=== PATIENT | female | born 1930 | race Caucasian/White ===

== ENCOUNTER 2018-01-01 13:17 | Outpatient (RCR) | payer MEDICARE | END 2018-01-22 | disposition home or self-care (01) | LOC: WCC 13:17 | DX: L97.813 Non-pressure chronic ulcer of other part of right lower leg with necrosis of muscle (principal); L97.913 Non-pressure chronic ulcer of unspecified part of right lower leg with necrosis of muscle; R60.0 Localized edema; Z88.0 Allergy status to penicillin; E78.00 Pure hypercholesterolemia, unspecified; I51.9 Heart disease, unspecified; E05.90 Thyrotoxicosis, unspecified without thyrotoxic crisis or storm; F32.9 Major depressive disorder, single episode, unspecified; K21.9 Gastro-esophageal reflux disease without esophagitis; Z79.82 Long term (current) use of aspirin | CPT/HCPCS: 11043; 15271; Q4133 ==

== ENCOUNTER 2018-01-29 13:10 | Outpatient (RCR) | payer MEDICARE | END 2018-02-21 | disposition home or self-care (01) | LOC: WCC 13:10 | DX: L97.813 Non-pressure chronic ulcer of other part of right lower leg with necrosis of muscle (principal); L97.913 Non-pressure chronic ulcer of unspecified part of right lower leg with necrosis of muscle; R60.0 Localized edema; Z88.0 Allergy status to penicillin; L98.491 Non-pressure chronic ulcer of skin of other sites limited to breakdown of skin; I51.9 Heart disease, unspecified; E78.00 Pure hypercholesterolemia, unspecified; E05.90 Thyrotoxicosis, unspecified without thyrotoxic crisis or storm; F32.9 Major depressive disorder, single episode, unspecified; K21.9 Gastro-esophageal reflux disease without esophagitis; Z79.82 Long term (current) use of aspirin | CPT/HCPCS: 11042; 11043; G0463 ==

== ENCOUNTER 2018-02-26 13:30 | Outpatient (RCR) | payer MEDICARE | END 2018-03-24 | disposition home or self-care (01) | LOC: WCC 13:30 | DX: L97.813 Non-pressure chronic ulcer of other part of right lower leg with necrosis of muscle (principal); L97.913 Non-pressure chronic ulcer of unspecified part of right lower leg with necrosis of muscle; R60.0 Localized edema; L98.491 Non-pressure chronic ulcer of skin of other sites limited to breakdown of skin; L97.512 Non-pressure chronic ulcer of other part of right foot with fat layer exposed; Z88.0 Allergy status to penicillin; I51.9 Heart disease, unspecified; E78.00 Pure hypercholesterolemia, unspecified; F32.9 Major depressive disorder, single episode, unspecified; K21.9 Gastro-esophageal reflux disease without esophagitis | CPT/HCPCS: 11043; 29580 ==

== ENCOUNTER 2018-03-26 13:30 | Outpatient (RCR) | payer MEDICARE ==
[~2018-03-26] VITALS: Ht 162.6 cm; Wt 68.0 kg
== END 2018-04-24 | disposition home or self-care (01) ==
LOC: WCC 13:30
DX: L98.499 Non-pressure chronic ulcer of skin of other sites with unspecified severity (principal); L97.822 Non-pressure chronic ulcer of other part of left lower leg with fat layer exposed; R60.0 Localized edema; Z88.0 Allergy status to penicillin; Z79.82 Long term (current) use of aspirin; E78.00 Pure hypercholesterolemia, unspecified; I50.9 Heart failure, unspecified; F32.9 Major depressive disorder, single episode, unspecified; K21.9 Gastro-esophageal reflux disease without esophagitis
CPT/HCPCS: 11042; 11043; 29580

== ENCOUNTER 2018-05-28 14:09 | Outpatient (RCR) | payer MEDICARE | END 2018-06-22 | disposition home or self-care (01) | LOC: WCC 14:09 | DX: L97.923 Non-pressure chronic ulcer of unspecified part of left lower leg with necrosis of muscle (principal); S51.801S Unspecified open wound of right forearm, sequela; R60.0 Localized edema; I73.9 Peripheral vascular disease, unspecified; E78.00 Pure hypercholesterolemia, unspecified; I51.9 Heart disease, unspecified; F32.9 Major depressive disorder, single episode, unspecified; K21.9 Gastro-esophageal reflux disease without esophagitis; F03.90 Unspecified dementia, unspecified severity, without behavioral disturbance, psychotic disturbance, mood disturbance, and anxiety; Z88.0 Allergy status to penicillin; X58.XXXS Exposure to other specified factors, sequela | CPT/HCPCS: 11043; 11046; 29580 ==

== ENCOUNTER 2018-06-25 13:13 | Outpatient (RCR) | payer MEDICARE | END 2018-07-22 | disposition home or self-care (01) | LOC: WCC 13:13 | DX: L97.923 Non-pressure chronic ulcer of unspecified part of left lower leg with necrosis of muscle (principal); R60.0 Localized edema; I73.9 Peripheral vascular disease, unspecified; S51.801S Unspecified open wound of right forearm, sequela; L97.823 Non-pressure chronic ulcer of other part of left lower leg with necrosis of muscle; Z88.0 Allergy status to penicillin; E78.00 Pure hypercholesterolemia, unspecified; F03.90 Unspecified dementia, unspecified severity, without behavioral disturbance, psychotic disturbance, mood disturbance, and anxiety; K21.9 Gastro-esophageal reflux disease without esophagitis; F32.9 Major depressive disorder, single episode, unspecified; E05.90 Thyrotoxicosis, unspecified without thyrotoxic crisis or storm; I11.9 Hypertensive heart disease without heart failure; I25.10 Atherosclerotic heart disease of native coronary artery without angina pectoris | CPT/HCPCS: 11043 ==

== ENCOUNTER 2018-08-20 13:44 | Outpatient (RCR) | payer MEDICARE | END 2018-08-22 | disposition home or self-care (01) | LOC: WCC 13:44 | DX: L97.813 Non-pressure chronic ulcer of other part of right lower leg with necrosis of muscle (principal); R60.9 Edema, unspecified; Z91.19 Patient's noncompliance with other medical treatment and regimen; F41.9 Anxiety disorder, unspecified; J44.9 Chronic obstructive pulmonary disease, unspecified; K21.9 Gastro-esophageal reflux disease without esophagitis; F03.90 Unspecified dementia, unspecified severity, without behavioral disturbance, psychotic disturbance, mood disturbance, and anxiety; I12.9 Hypertensive chronic kidney disease with stage 1 through stage 4 chronic kidney disease, or unspecified chronic kidney disease; N18.9 Chronic kidney disease, unspecified; E05.90 Thyrotoxicosis, unspecified without thyrotoxic crisis or storm; E78.00 Pure hypercholesterolemia, unspecified; Z79.899 Other long term (current) drug therapy; Z79.01 Long term (current) use of anticoagulants; Z79.82 Long term (current) use of aspirin; Z88.0 Allergy status to penicillin | CPT/HCPCS: 11043 ==

== ENCOUNTER 2018-10-01 13:13 | Outpatient (RCR) | payer MEDICARE | END 2018-10-22 | disposition home or self-care (01) | LOC: WCC 13:13 | DX: L97.823 Non-pressure chronic ulcer of other part of left lower leg with necrosis of muscle (principal); L97.812 Non-pressure chronic ulcer of other part of right lower leg with fat layer exposed; R60.9 Edema, unspecified; E78.00 Pure hypercholesterolemia, unspecified; F32.9 Major depressive disorder, single episode, unspecified; F03.90 Unspecified dementia, unspecified severity, without behavioral disturbance, psychotic disturbance, mood disturbance, and anxiety; K21.9 Gastro-esophageal reflux disease without esophagitis; E05.90 Thyrotoxicosis, unspecified without thyrotoxic crisis or storm; I50.9 Heart failure, unspecified; Z88.0 Allergy status to penicillin | CPT/HCPCS: 11042; 11043; G0463 ==

== ENCOUNTER 2018-10-29 16:41 | Emergency (ER) | payer MEDICARE ==
[~2018-10-29] VITALS: Ht 157.5 cm; Wt 59.0 kg
--- NOTE | 2018-10-29 17:03 | NUR ---
ED Nurse Note: PT BROUGHT IN TO ER TODAY BY [id number] FROM [facility]. AOX4. PT STATES SHE FELL X 20 MINUTES PRIOR TO ARRIVAL. PT DENIES HEAD TRAUMA OR LOC. PT PRESENTS WITH LACERATION TO RIGHT UPPER ARM, RIGHT HAND, AND RIGHT KNEE. NO ACTIVE BLEEDING NOTED. NO OBVIOUS INJURY. CIRCULATION AND SENSATION INTACT. GAIT STEADY WITHOUT ASSISTIVE DEVICE. PT STATES SHE IS ON BLOOD THINNERS. PT PRESENTED TO ER WITH BILATERAL LEGS WRAPPED. PT STATES IT WAS WRAPPED TWO DAYS AGO AT [facility]. MULTIPLE BRUISES NOTED OVER ALL EXTREMITIES. PT DENIES PAIN.
--- NOTE | 2018-10-29 17:03 | NUR ---
Note undone in EDM - 10/29/18 at 1710 by [facility] ED Nurse Note: PT BROUGHT IN TO ER TODAY BY [id number] FROM [facility]. AOX4. PT STATES SHE FELL X 20 MINUTES PRIOR TO ARRIVAL. PT DENIES HEAD TRAUMA OR LOC. PT PRESENTS WITH LACERATION TO RIGHT UPPER ARM, RIGHT HAND, AND RIGHT KNEE. NO ACTIVE BLEEDING NOTED. NO OBVIOUS INJURY. CIRCULATION AND SENSATION INTACT. GAIT STEADY WITHOUT ASSISTIVE DEVICE. PT STATES SHE IS ON BLOOD THINNERS. PT PRESENTED TO ER WITH BILATERAL LEGS WRAPPED. PT STATES IT WAS WRAPPED TWO DAYS AGO AT [facility]. MULTIPLE BRUISES NOTED OVER ALL EXTREMITIES.
[2018-10-29 17:07] VITALS: BP 135/114
[2018-10-29] MEDS ORDERED: FERROUS SULFAT325 MG ORAL (17:16)
[2018-10-29] MEDS ORDERED: ZYPREXA2.5 MG ORAL (17:16)
[2018-10-29] MEDS ORDERED: PANTOPRAZOLE SO40 MG ORAL ×2 (17:16)
[2018-10-29] MEDS ORDERED: ALLOPURINOL100 M1 ORAL (17:16)
[2018-10-29] MEDS ORDERED: NEPHROVITE1 TAB ORAL (17:16)
[2018-10-29] MEDS ORDERED: ASPIR 8181 MG ORAL (17:16)
[2018-10-29] MEDS ORDERED: ELIQUIS2.5 MG PO (17:16)
[2018-10-29] MEDS ORDERED: MULTIVITAMINS1 EAC2 ORAL (17:16)
[2018-10-29] MEDS ORDERED: FUROSEMIDE40 MG ORAL (17:16)
[2018-10-29] MEDS ORDERED: CLOPIDOGREL75 MG ORAL (17:16)
[2018-10-29] MEDS ORDERED: LEXAPRO10 MG ORAL (17:16)
[2018-10-29] MEDS ORDERED: ATORVASTATIN CA40 MG ORAL (17:16)
[2018-10-29] MEDS ORDERED: POTASSIUM CHLO20 ME2 ORAL (17:16)
[2018-10-29] MEDS ORDERED: METHIMAZOLE5 MG PO (17:16)
[2018-10-29] MEDS ORDERED: Tetanus/Diptheria/Pertussis IM ONE (17:45)
--- NOTE | 2018-10-29 18:30 | Emergency Room Report ---
History of Present Illness General Chief Complaint: Multiple Trauma/Fall Source: Patient, Medical Record Present Illness HPI Patient presents emergency department today complaining of fall. Patient states that she was feeling a little weak and then fell and hurt her right right shoulder. There appears to be skin tears in those areas with bruising. Patient states that she is on Coumadin. She denies any fever chest pain shortness of breath. States that this is a mechanical fall. Denies any nausea vomiting diarrhea chills. No other complaints are noted. Symptoms noted to mild to moderate. No other modifying factors. No other associated signs and symptoms. No other complaints were noted. Allergies: Coded Allergies: PENICILLINS (Verified Allergy, Unknown, 04/02/18) Patient History Past Medical History: DM, HTN, CAD Past Surgical History: none Pertinent Family History: none Social History: Denies: smoking, alcohol use, drug use Reviewed Nursing Documentation: PMH: Agreed; PSxH: Agreed Nursing Documentation-PMH Hx Cardiac Problems: Yes - cad Hx Hypertension: Yes Hx Diabetes: Yes Review of Systems All Other Systems: negative except mentioned in HPI Physical Exam Vital Signs Date Time Temp Pulse Resp B/P (MAP) Pulse Ox O2 Delivery O2 Flow Rate FiO2 10/29/18 16:42 98.4 74 16 138/72 (94) 98 Room Air Sp02 EP Interpretation: reviewed, normal General Appearance: normal inspection, well appearing, no apparent distress, alert Head: atraumatic Eyes: bilateral eye normal inspection ENT: normal ENT inspection, hearing grossly normal, normal voice Neck: normal inspection, full range of motion, supple, no bony tend Respiratory: normal inspection, lungs clear, normal breath sounds, no respiratory distress, no retraction, no wheezing Cardiovascular #1: regular rate, rhythm, no edema Gastrointestinal: normal inspection, normal bowel sounds, non tender, soft, no guarding, no hernia Genitourinary: no CVA tenderness Musculoskeletal: normal inspection, back normal, normal range of motion Neurologic: normal inspection, alert, responsive, speech normal Psychiatric: normal inspection, judgement/insight normal, mood/affect normal Skin: other - Skin tear right upper extremity and right knee Medical Decision Making Diagnostic Impression: Primary Impression: Skin tear of left upper extremity Additional Impressions: Skin tear of lower leg without complication Fall ER Course Patient presents emergency department today complaining of a skin tear from falls. Patient also states that she felt unsteady weak and fell. Differential considerations include electrolyte abnormality, infectious process, fracture, skin tear, deep tissue injury just name a few. Given the severity of the patient's presentation I felt this is a highly complex patient. This patient required extensive workup. Patient's laboratory work-up was negative. EKG did not show any impressive abnormality. Therefore it is felt the patient could be discharged. Patient is feeling much better actually ate food here was ambulate without difficulty and requested to be discharged. Patient's wound was irrigated and then the wound was approximated with Steri-Strips. Patient tolerated procedure without difficulty. Procedure note: Wound approximation. Site #1. Right upper extremity approximately 5 cm skin tear was noted. Area was irrigated with copious amount of saline. There was adequate irrigation. Then the wound was sterilely closed with Steri-Strips. Sutures were unnecessary and harmful and was not used because skin tear is very superficial. The wound was adequately approximated with Steri-Strips. Patient was given wound care instructions. There is no complications associated with the closure. Site #2. Right knee. Right knee had a skin tear approximately 4 cm in length. Areas irrigated copious amount of saline. There is adequate irrigation. The wound was sterilely closed with Steri-Strips. Sutures again were necessary and harmful and was not used because skin tear is very superficial. The wound was actually adequately approximated with Steri-Strips. Patient was given wound care instructions. There is no comp occasion associated closure. Labs Test 10/29/18 18:16 10/29/18 19:14 Urine Color Pale yellow Urine Appearance Clear Urine pH 5 (4.5-8.0) Urine Specific [place] 1.010 (1.005-1.035) Urine Protein Negative (NEGATIVE) Urine Glucose (UA) Negative (NEGATIVE) Urine Ketones Negative (NEGATIVE) Urine Blood 1+ (NEGATIVE) Urine Nitrite Negative (NEGATIVE) Urine Bilirubin Negative (NEGATIVE) Urine Urobilinogen Normal MG/DL (0.0-1.0) Urine Leukocyte Esterase 2+ (NEGATIVE) Urine RBC 0-2 /HPF (0 - 2) Urine WBC 2-4 /HPF (0 - 2) Urine Squamous Epithelial Cells Few /LPF (NONE/OCC) Urine Bacteria Occasional /HPF (NONE) White Blood Count 7.5 K/UL (4.8-10.8) Red Blood Count 3.63 M/UL (4.20-5.40) Hemoglobin 10.0 G/DL (12.0-16.0) Hematocrit 31.3 % (37.0-47.0) Mean Corpuscular Volume 86 FL (80-99) Mean Corpuscular Hemoglobin 27.4 PG (27.0-31.0) Mean Corpuscular Hemoglobin Concent 31.8 G/DL (32.0-36.0) Red Cell Distribution Width 18.3 % (11.6-14.8) Platelet Count 210 K/UL (150-450) Mean Platelet Volume 7.3 FL (6.5-10.1) Neutrophils (%) (Auto) 77.5 % (45.0-75.0) Lymphocytes (%) (Auto) 17.6 % (20.0-45.0) Monocytes (%) (Auto) 3.9 % (1.0-10.0) Eosinophils (%) (Auto) 0.2 % (0.0-3.0) Basophils (%) (Auto) 0.9 % (0.0-2.0) Prothrombin Time 9.9 SEC (9.30-11.50) Prothromb Time International Ratio 0.9 (0.9-1.1) Activated Partial Thromboplast Time 25 SEC (23-33) Sodium Level 146 MMOL/L (136-145) Potassium Level 3.8 MMOL/L (3.5-5.1) Chloride Level 109 MMOL/L (98-107) Carbon Dioxide Level 30 MMOL/L (21-32) Anion Gap 7 mmol/L (5-15) Blood Urea Nitrogen 28 mg/dL (7-18) Creatinine 1.0 MG/DL (0.55-1.30) Estimat Glomerular Filtration Rate mL/min (>60) Glucose Level 170 MG/DL (74-106) Calcium Level 8.9 MG/DL (8.5-10.1) Total Bilirubin 0.4 MG/DL (0.2-1.0) Aspartate Amino Transf (AST/SGOT) 17 U/L (15-37) Alanine Aminotransferase (ALT/SGPT) 17 U/L (12-78) Alkaline Phosphatase 95 U/L (46-116) Troponin I 0.019 ng/mL (0.000-0.056) Total Protein 6.0 G/DL (6.4-8.2) Albumin 2.7 G/DL (3.4-5.0) Globulin 3.3 g/dL Albumin/Globulin Ratio 0.8 (1.0-2.7) EKG Diagnostic Results Rate: normal Rhythm: NSR ST Segments: no acute changes Other Impression rbbb Rhythm Strip Diag. Results EP Interpretation: yes Rate: 70s Rhythm: NSR, no ectopy, other - pvcs Last Vital Signs Date Time Temp Pulse Resp B/P (MAP) Pulse Ox O2 Delivery O2 Flow Rate FiO2 10/29/18 17:07 74 11 Room Air 10/29/18 17:07 98.2 135/114 99 Status: improved Disposition: HOME, SELF-CARE Condition: Stable Referrals: NON PHYSICIAN (PCP) Patient Instructions: Stitches, [place], or Adhesive Wound Closure, Easy-to- Read Dion Copeland MD Oct 29, 2018 18:30
[2018-10-29 18:31] LABS: APPEARANCE,URINE CLEAR; BILIRUBIN, URINE NEGATIVE (NEGATIVE); COLOR,URINE PALE YELLOW; GLUCOSE, URINE (UA) NEGATIVE (NEGATIVE); KETONES,URINE NEGATIVE (NEGATIVE); LEUKOCYTE ESTERASE ,URINE 2+ (NEGATIVE); NITRITE,URINE NEGATIVE (NEGATIVE); PH,URINE 5 (4.5-8.0); PROTEIN,URINE NEGATIVE (NEGATIVE); UROBILINOGEN,URINE NORMAL MG/DL (0.0-1.0)
--- NOTE | 2018-10-29 19:02 | NUR ---
HAND-OFF: REPORT GIVEN TO DEON BENITEZ RN.
[2018-10-29 19:41] LABS: BASOPHILS % (AUTO) 0.9 % (0.0-2.0); EOSINOPHILS % (AUTO) 0.2 % (0.0-3.0); HEMATOCRIT 31.3 % (37.0-47.0); LYMPHOCYTES % (AUTO) 17.6 % (20.0-45.0); MEAN CORPUSCULAR VOLUME 86 FL (80-99); MONOCYTES % (AUTO) 3.9 % (1.0-10.0); NEUTROPHILS % (AUTO) 77.5 % (45.0-75.0); PLATELET COUNT 210 K/UL (150-450); RED BLOOD COUNT 3.63 M/UL (4.20-5.40); RED CELL DISTRIBUTION WIDTH 18.3 % (11.6-14.8); WHITE BLOOD COUNT 7.5 K/UL (4.8-10.8)
[2018-10-29 19:54] LABS: INR 0.9 (0.9-1.1)
[2018-10-29 19:57] LABS: ANION GAP 7 mmol/L (5-15); BLOOD UREA NITROGEN 28 mg/dL (7-18); CALCIUM 8.9 MG/DL (8.5-10.1); CARBON DIOXIDE 30 MMOL/L (21-32); CHLORIDE 109 MMOL/L (98-107); POTASSIUM 3.8 MMOL/L (3.5-5.1); SODIUM 146 MMOL/L (136-145)
[2018-10-29 20:04] LABS: ALANINE AMINOTRANSFERASE 17 U/L (12-78); ALBUMIN 2.7 G/DL (3.4-5.0); ALBUMIN/GLOBULIN RATIO 0.8 (1.0-2.7); ALKALINE PHOSPHATASE 95 U/L (46-116); ASPARTATE AMINO TRANSFERASE 17 U/L (15-37); BILIRUBIN,TOTAL 0.4 MG/DL (0.2-1.0)
[2018-10-29 20:08] VITALS: BP 110/64
[2018-10-29 20:15] VITALS: BP 110/64
--- NOTE | 2018-10-29 20:16 | NUR ---
ER DISCHARGE NOTE: Patient is cleared to be discharged per ERMD, pt is aox4, on room air, with stable vital signs. pt was given dc and prescription instructions, pt was able to verbalize understanding, pt id band removed. report given to [facility]. pt is able to ambulate to [facility] steady gait. pt left elbow [facility] personnel with all belongings.
== END 2018-10-29 20:15 | disposition home or self-care (01) ==
LOC: EDBD 16:41 → EMR 17:45
DX: S40.211A Abrasion of right shoulder, initial encounter (principal); S80.211A Abrasion, right knee, initial encounter; W19.XXXA Unspecified fall, initial encounter; Y92.9 Unspecified place or not applicable; Y99.0 Civilian activity done for income or pay; Z79.01 Long term (current) use of anticoagulants; Z88.0 Allergy status to penicillin; I11.9 Hypertensive heart disease without heart failure; I25.10 Atherosclerotic heart disease of native coronary artery without angina pectoris; E11.9 Type 2 diabetes mellitus without complications; Z23 Encounter for immunization
CPT/HCPCS: 36415; 80053; 81003; 84484; 85025; 85610; 85730; 90471; 90715; 93005; 99283